=== PATIENT | male | born 1970 ===

== ENCOUNTER → 2019-03-27 22:45 | Outpatient (REF) | payer OTHER, SELFPAY ==
[2019-03-27 23:41] LABS: Free T3, Triiodothyronine Free 3.86 pg/mL (2.77-5.27); Free T4, Direct Thyroxine 1.06 ng/dL (0.78-2.19)
[2019-03-27 23:55] LABS: Thyroid Stimulating Hormone 0.86 uIU/mL (0.47-4.68)
[2019-03-31 15:01] LABS: Anti Thyroglobulin Antibody < 1 IU/mL (< 2); Thyroid Peroxidase Antibodies 2 IU/mL (< 9)
== END ==
LOC: LAB 22:45
PROVIDERS: Naturopath; Visit Provider Internal Medicine Gastroenterology
DX: E04.1 Nontoxic single thyroid nodule (principal)
CPT/HCPCS: 36415; 84439; 84443; 84481; 86376; 86800